=== PATIENT | male | born 1970 | race Caucasian/White ===

== ENCOUNTER 2019-11-12 10:07 | Emergency (ER) | payer MEDICAID ==
[~2019-11-12] VITALS: Ht 167.6 cm; Wt 96.9 kg
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
[2019-11-12 11:48] VITALS: BP 136/69
--- NOTE | 2019-11-12 11:49 | NUR ---
AWAITING ON RECORDS FROM [facility].
--- NOTE | 2019-11-12 12:42 | NUR ---
PT COMING OUT TO DESK, IRRITATED STATES " ARE YOU GUYS EVEN GOING TO DO ANYTHING" PT ESCORTED BACK TO [facility], ERMD IN TO UPDATE PT ON POC. PLAN TO DC PT HOME.
== END 2019-11-12 13:23 | disposition home or self-care (01) ==
LOC: ED 11:11
DX: S00.03XA Contusion of scalp, initial encounter (principal); L03.213 Periorbital cellulitis; F17.200 Nicotine dependence, unspecified, uncomplicated; V89.2XXA Person injured in unspecified motor-vehicle accident, traffic, initial encounter; Y93.89 Activity, other specified; Y92.410 Unspecified street and highway as the place of occurrence of the external cause; Y99.8 Other external cause status
CPT/HCPCS: 99283

== ENCOUNTER 2019-11-18 14:10 | Emergency (ER) | payer MEDICAID ==
[~2019-11-18] VITALS: Ht 165.1 cm; Wt 97.0 kg
--- NOTE | 2019-11-18 15:20 | NUR ---
PLATE TAKE OUT WORKER: PT TO ROOM FROM LOBBY AT THIS TIME. SOLOMON
[2019-11-18 15:35] VITALS: BP 123/72
[2019-11-18] MEDS ORDERED: GABA300C PO (15:35)
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
--- NOTE | 2019-11-18 16:16 | NUR ---
Patient given discharge instructions and they have confirmed that they understand the instructions. Patient ambulatory with steady gait.
== END 2019-11-18 16:19 | disposition home or self-care (01) ==
LOC: ED 16:00
DX: S29.011A Strain of muscle and tendon of front wall of thorax, initial encounter (principal); R94.31 Abnormal electrocardiogram [ECG] [EKG]; F17.200 Nicotine dependence, unspecified, uncomplicated; V89.2XXA Person injured in unspecified motor-vehicle accident, traffic, initial encounter; Y93.89 Activity, other specified; Y92.89 Other specified places as the place of occurrence of the external cause; Y99.8 Other external cause status
CPT/HCPCS: 93005; 99283

== ENCOUNTER 2019-11-24 16:21 | Emergency (ER) | payer MEDICAID ==
[~2019-11-24] VITALS: Ht 167.6 cm; Wt 95.0 kg
[~2019-11-24 16:21] MED LIST: GABA300C PO
[2019-11-24 16:37] VITALS: BP 117/75
--- NOTE | 2019-11-24 17:29 | NUR ---
suture removal tolerated well.
[2019-11-24] MEDS ORDERED: IBUPROFEN 600 MG TABLET ONE (17:50)
[2019-11-24] MEDS ORDERED: DOXYCYCLINE 100MG TABLET ONE (17:51)
--- NOTE | 2019-11-24 17:51 | NUR ---
PT WAS CLEANED BY BHARATH ASTORGA
--- NOTE | 2019-11-24 17:53 | NUR ---
DISCHARGE INSTRUCTIONS REVIEWED
[2019-11-24] MEDS ORDERED: DOXYCYCLINE 100MG TABLET PO ONE (18:00)
[2019-11-24] MEDS ORDERED: IBUPROFEN 200 MG TABLET PO ONE (18:00)
== END 2019-11-24 18:09 | disposition home or self-care (01) ==
LOC: ED 17:52
DX: L03.811 Cellulitis of head [any part, except face] (principal); S01.01XD Laceration without foreign body of scalp, subsequent encounter; Z72.9 Problem related to lifestyle, unspecified; F17.200 Nicotine dependence, unspecified, uncomplicated; X58.XXXD Exposure to other specified factors, subsequent encounter
CPT/HCPCS: 99283